=== PATIENT | female | born 1955 | race Caucasian/White ===

== ENCOUNTER 2019-05-25 19:10 | Emergency (ER) | payer SELFPAY ==
[~2019-05-25] VITALS: Ht 160 cm; Wt 78.0 kg
[2019-05-25 19:17] VITALS: BP 138/68
== END 2019-05-25 22:15 | disposition left against medical advice (07) ==
LOC: ER 19:10
DX: R07.89 Other chest pain (principal); R51 Headache; Z53.21 Procedure and treatment not carried out due to patient leaving prior to being seen by health care provider
CPT/HCPCS: 93005